=== PATIENT | female | born 1950 | race Caucasian/White ===

== ENCOUNTER 2018-06-24 06:31 | Emergency (ER) | payer BC ==
[~2018-06-24] VITALS: Ht 162.6 cm; Wt 90.7 kg
[2018-06-24] MEDS ORDERED: CIPRO500 MG PO ×2 (07:07→07:10)
== END 2018-06-24 07:13 | disposition home or self-care (01) ==
LOC: FSED 06:31
DX: R30.0 Dysuria (principal); N30.91 Cystitis, unspecified with hematuria; I10 Essential (primary) hypertension; E78.5 Hyperlipidemia, unspecified; E07.9 Disorder of thyroid, unspecified
CPT/HCPCS: 81003; 99283